=== PATIENT | female | born 1975 | race Caucasian/White ===

== ENCOUNTER 2017-12-09 16:32 | Inpatient (IN) | payer OTHER ==
[2017-12-09] MEDS ORDERED: METHYLERGONOVINE 0.2 MG INJ IM (17:00)
[2017-12-09] MEDS ORDERED: MISOPROSTOL 200 MCG TAB PR (17:00)
[2017-12-09] MEDS ORDERED: OXYTOCIN 30 UNITS/LR 500 ML IV ×2 (17:00→19:00)
[2017-12-09] MEDS ORDERED: CARBOPROST 250 MCG INJ IM (17:00)
[2017-12-09] MEDS: LACTATED RINGER'S 1,000 ML IV (17:10)
[2017-12-09 17:22] LABS: ADD MAN DIFF? NO
[2017-12-09 17:25] LABS: BASOPHILS % 0.4 % (0.0-2.0); EOSINOPHILS % 0.2 % (0.0-7.0); HEMATOCRIT 42.1 % (37.0-47.0); HEMOGLOBIN 14.4 g/dl (12.0-16.0); LYMPHOCYTES # 1.6 10^3/ul (0.8-2.9); LYMPHOCYTES % 14.2 % (15.0-51.0); MEAN CORPUSCULAR HEMOGLOBIN 30.3 pg (29.0-33.0); MEAN CORPUSCULAR HGB CONC 34.2 g/dl (32.0-37.0); MEAN CORPUSCULAR VOLUME 88.4 fl (82.0-101.0); MEAN PLATELET VOLUME 11.8 fl (7.4-10.4); MONOCYTE # 0.6 10^3/ul (0.3-0.9); MONOCYTES % 5.6 % (0.0-11.0); NEUTROPHIL # 8.7 10^3/ul (1.6-7.5); NEUTROPHILS % 78.6 % (39.0-77.0); PLATELET COUNT 175 10^3/UL (140-415); RED BLOOD COUNT 4.76 10^6/ul (4.20-5.40); RED CELL DISTRIBUTION WIDTH 13.2 % (11.5-14.5)
[2017-12-09 17:25] LABS: WHITE BLOOD COUNT 11.1 10^3/ul (4.8-10.8)
[2017-12-09 17:45] LABS: INR 0.85; PROTIME 11.7 Sec (11.9-14.9); PT RATIO 0.9
[2017-12-09 17:46] LABS: PARTIAL THROMBOPLASTIN TIME 26.3 Sec (25.0-35.0)
[2017-12-09] MEDS ORDERED: LIDOCAINE 1% (MPF) 30 ML INJ (18:53)
[2017-12-09] MEDS: AMPICILLIN 2 GM/NS (PMX) 100 ML IV (18:57)
[2017-12-09] MEDS ORDERED: BUTORPHANOL 1 MG INJ IV (19:00)
[2017-12-09] MEDS ORDERED: BUTORPHANOL 2 MG INJ IV (19:00)
[2017-12-09] MEDS ORDERED: IBUPROFEN 600 MG TAB PO (19:00)
[2017-12-09] MEDS ORDERED: AMPICILLIN 2 GM/NS (PMX) 100 ML IV (19:00)
[2017-12-09] MEDS: LIDOCAINE 1% (MPF) 30 ML INJ INJ (20:37)
[2017-12-09 21:03] LABS: HEPATITIS B SURFACE ANTIGEN NEGATIVE (NEGATIVE)
[2017-12-09] MEDS: OXYTOCIN 30 UNITS/LR 500 ML IV ×2 (21:03→23:11)
[2017-12-09] MEDS ORDERED: ACETAMINOPHEN 325 MG TAB PO (22:30)
[2017-12-09] MEDS ORDERED: ONDANSETRON 4 MG INJ IV (22:30)
[2017-12-09] MEDS ORDERED: HYDROCODONE/APAP (5/325) TAB PO ×2 (22:30)
[2017-12-09] MEDS ORDERED: OXYCODONE/ASPIRIN (4.88/325) TAB PO ×2 (22:30)
[2017-12-09] MEDS ORDERED: AMPICILLIN 1 GM/NS (PMX) 50 ML IV ×2 (23:00)
[2017-12-09] MEDS: BENZOCAINE 20% 56 ML SPRAY TOP (23:41)
[2017-12-09] MEDS: IBUPROFEN 600 MG TAB PO (23:41)
[2017-12-09] MEDS: WITCH HAZEL/GLYCERIN PAD PR (23:42)
[2017-12-09] MEDS: DIBUCAINE 1% 30 GM OINT PR (23:42)
[2017-12-10] MEDS: IBUPROFEN 600 MG TAB PO ×3 (05:54→18:12)
[2017-12-10] MEDS: LANOLIN 7 GM TUBE TOP (05:54)
[2017-12-10] MEDS: LEVOTHYROXINE 50 MCG TAB PO (06:38)
[2017-12-10 09:29] LABS: ADD MAN DIFF? NO
[2017-12-10 09:33] LABS: BASOPHILS % 0.4 % (0.0-2.0); EOSINOPHILS % 0.3 % (0.0-7.0); HEMATOCRIT 36.4 % (37.0-47.0); HEMOGLOBIN 12.2 g/dl (12.0-16.0); LYMPHOCYTES # 1.3 10^3/ul (0.8-2.9); LYMPHOCYTES % 12.1 % (15.0-51.0); MEAN CORPUSCULAR HEMOGLOBIN 29.8 pg (29.0-33.0); MEAN CORPUSCULAR HGB CONC 33.5 g/dl (32.0-37.0); MEAN PLATELET VOLUME 12.4 fl (7.4-10.4); MONOCYTE # 0.8 10^3/ul (0.3-0.9); MONOCYTES % 7.6 % (0.0-11.0); NEUTROPHIL # 8.7 10^3/ul (1.6-7.5); NEUTROPHILS % 78.8 % (39.0-77.0); PLATELET COUNT 145 10^3/UL (140-415); RED BLOOD COUNT 4.09 10^6/ul (4.20-5.40); RED CELL DISTRIBUTION WIDTH 13.2 % (11.5-14.5)
[2017-12-10] MEDS: FOLIC ACID 1 MG TAB PO (09:59)
[2017-12-10] MEDS: SENNA/DOCUSATE NA (8.6MG/50MG) TAB PO ×2 (09:59→22:00)
[2017-12-10 15:21] LABS: RAPID PLASMA REAGIN NONREACTIVE (NR)
[2017-12-11] MEDS: IBUPROFEN 600 MG TAB PO ×3 (00:27→11:54)
[2017-12-11] MEDS: LEVOTHYROXINE 50 MCG TAB PO (06:47)
[2017-12-11] MEDS: SENNA/DOCUSATE NA (8.6MG/50MG) TAB PO (09:14)
[2017-12-11] MEDS: FOLIC ACID 1 MG TAB PO (09:14)
[2017-12-11] MEDS: MEASLES,MUMPS,RUBELLA VACCINE INJ SC* (09:15)
== END 2017-12-11 16:52 | disposition home or self-care (01) | DRG 775 ==
LOC: L-D 16:32 → PP1 22:08
PROVIDERS: Obstetrics & Gynecology
PROC: 10E0XZZ Delivery of Products of Conception, External Approach (ICD-10-PCS; principal; 2017-12-09)
PROC: 4A1HXCZ Monitoring of Products of Conception, Cardiac Rate, External Approach (ICD-10-PCS; 2017-12-09)
PROC: 0HQ9XZZ Repair Perineum Skin, External Approach (ICD-10-PCS; 2017-12-09)
DX: O24.425 Gestational diabetes mellitus in childbirth, controlled by oral hypoglycemic drugs (principal); O69.1XX0 Labor and delivery complicated by cord around neck, with compression, not applicable or unspecified; O99.284 Endocrine, nutritional and metabolic diseases complicating childbirth; E03.9 Hypothyroidism, unspecified; O70.0 First degree perineal laceration during delivery; Z3A.39 39 weeks gestation of pregnancy; Z37.0 Single live birth
CPT/HCPCS: 82962; 85025; 85610; 85730; 86592; 86850; 86900; 86901; 87340; 99464